=== PATIENT | male | born 1990 | race Caucasian/White ===

== ENCOUNTER 2021-01-18 12:31 | Emergency (ER) | payer OTHER ==
[~2021-01-18] VITALS: Ht 180.3 cm; Wt 68.0 kg
[2021-01-18] MEDS ORDERED: ACETAMINOPHEN 500 MG TABLET PO ONE (13:15)
[2021-01-18 13:21] VITALS: BP 117/81
== END 2021-01-18 15:32 ==
LOC: EMS 12:31
DX: S00.93XA Contusion of unspecified part of head, initial encounter (principal); Y04.2XXA Assault by strike against or bumped into by another person, initial encounter; Y93.89 Activity, other specified; Y92.89 Other specified places as the place of occurrence of the external cause; Y99.8 Other external cause status
CPT/HCPCS: 70450; 70486; 99285

== ENCOUNTER 2023-05-11 11:27 | Emergency (ER) | payer SELFPAY ==
[~2023-05-11] VITALS: Ht 180.3 cm; Wt 70.0 kg
[2023-05-11 14:25] VITALS: BP 117/73; PULSE 90; RESP 18; TEMP 98.3
== END 2023-05-11 14:45 | disposition left against medical advice (07) ==
LOC: EMS 14:41
DX: T40.601A Poisoning by unspecified narcotics, accidental (unintentional), initial encounter (principal); K75.9 Inflammatory liver disease, unspecified; F17.210 Nicotine dependence, cigarettes, uncomplicated; Y92.89 Other specified places as the place of occurrence of the external cause
CPT/HCPCS: 93005; 99284; Z7502